=== PATIENT | female | born 1970 | race African-American/Black ===

== ENCOUNTER → 2020-03-25 | Outpatient (CLI) | payer OTHER ==
[~2020-03-25] VITALS: Ht 177.8 cm; Wt 152.4 kg
[~2020-03-25] MED LIST: BUTALBIT-ACETA1 EACH PO; EZFE 200200 MG PO; MULTIVITAMINS PO; SERTRALINE HCL100 MG PO; TIZANIDINE HCL4 M1 PO; TRAZODONE HCL100 MG PO; TROKENDI XR200 MG PO
--- NOTE | 2020-03-28 10:09 | P ---
[facility] [place] [address] PROCEDURE REPORT Name: ARY STEPHENS Room #: REG [facility]#: [id number] Admission: 03/25/20 Attend Phys: Quique Woodward MD Discharge: Date of : 72 Report #: [id number] THIS REPORT FOR: cc: Dolly Kern ARNP Brown, Deborah J, ARNP Thesing, John A. MD ~ CC: Dolly Carlin DATE OF SERVICE: 03/25/2020 OUTPATIENT COLONOSCOPY REPORT BRIEF HISTORY: The patient is a 49-year-old woman with family history of colon cancer, father and grandfather. PREOPERATIVE DIAGNOSIS: Family history of colon cancer. POSTOPERATIVE DIAGNOSIS: Mild left-sided diverticulosis coli. MEDICATIONS: Deep sedation with propofol per anesthesia. SPECIMEN: None. ESTIMATED BLOOD LOSS: None. PROCEDURE: Colonoscopy to cecum and terminal ileum. FINDINGS: Prior to propofol sedation, the procedure of colonoscopy was discussed with the patient as well as potential risks and its complications. She indicates she understands and desires to proceed. DESCRIPTION OF PROCEDURE: With the patient in left lateral decubitus position, digital examination was completed, which revealed no abnormalities. Subsequently, the Olympus video colonoscope was introduced into the rectum, advanced under direct vision to the cecum. This was done with minimal difficulty. The cecum was identified by the ileocecal valve and the appendiceal orifice. I was able to visualize the distal segment of the terminal ileum, which was inspected and noted to be unremarkable. At that point, the scope was slowly withdrawn and careful circumferential views were obtained including retroflexing the scope in the ascending colon. Upon slow withdrawal of the scope, the prep was good. The mucosa was within normal limits, normal vascular pattern, normal light reflex. As we withdrew the scope, no neoplastic lesions were seen. The mucosa throughout the entire colon was normal. In the left [facility] [address] [place] [address] PROCEDURE REPORT Name: ARY STEPHENS Room #: REG [facility].#: [id number] Admission: 03/25/20 Attend Phys: Quique Woodward MD Discharge: Date of : 72 Report #: [id number] colon, there was an occasional diverticulum seen. The diverticula were moderate in size. There was no endoscopic evidence of diverticulitis. The scope was withdrawn in the rectum and no abnormalities were seen. Upon retroflexion, no abnormalities were seen. The scope was withdrawn and the patient tolerated the procedure well. CONDITION OF THE PATIENT UPON DISCHARGE: Following the procedure, the patient was drowsy, arousable and conversant, and she will be discharged home when fully ambulatory. INSTRUCTIONS TO THE PATIENT AND FAMILY AT THE TIME OF DISCHARGE: No neoplastic lesions were seen today. Her father was in his 70s when he was diagnosed with colon cancer and her grandfather was in his 60s. At this point in time, she can follow average risk screening recommendations. I would suggest she return in 10 years for a screening colonoscopy. In addition, should she develop any specific symptoms or indications, colonoscopy could be completed in the future at an earlier date if needed. Last colonoscopy was 14 years ago. Withdrawal time from the cecum was 10 minutes 5 seconds. <ELECTRONICALLY SIGNED> By: Quique Woodward MD 03/28/20 [id number] Quique Woodward MD /nt
== END | disposition home or self-care (01) ==
LOC: GI 07:10
PROVIDERS: ATTEND Specialist
DX: Z12.11 Encounter for screening for malignant neoplasm of colon (principal); Z80.0 Family history of malignant neoplasm of digestive organs; K57.30 Diverticulosis of large intestine without perforation or abscess without bleeding; G43.909 Migraine, unspecified, not intractable, without status migrainosus; F41.9 Anxiety disorder, unspecified; Z98.890 Other specified postprocedural states; Z79.899 Other long term (current) drug therapy; Z90.49 Acquired absence of other specified parts of digestive tract; Z87.442 Personal history of urinary calculi
CPT/HCPCS: 62110; 62900